=== PATIENT | female | born 1960 | race Hispanic/Latino ===

== ENCOUNTER 2019-10-31 16:27 | Outpatient (CLI) | payer OTHER ==
--- NOTE | 2019-10-31 17:30 | XRay Report ---
CERVICAL SPINE 4 VIEWS INDICATION / CLINICAL INFORMATION: DISABILITY; PRIMARY OSTEOARTHRITIS INVOLVING MULTIPLE JOINTS. COMPARISON: None available. FINDINGS: Moderate spondylosis, primarily involving the facet joints, from C4 to C7. No fracture, subluxation o r other acute abnormality. Signer Name: Vasu Trivedi MD Signed: 10/31/2019 5:26 PM Workstation Name: [id number]
--- NOTE | 2019-10-31 17:33 | XRay Report ---
RIGHT KNEE 2 VIEWS INDICATION / CLINICAL INFORMATION: DISABILITY; PRIMARY OSTEOARTHRITIS INVOLVING MULTIPLE JOINTS. COMPARISON: None available. FINDINGS: Minimal degenerative change. No significant joint effusion. No fracture or other acute abnormality. Signer Name: Vasu Trivedi MD Signed: 10/31/2019 5:29 PM Workstation Name: [id number]
--- NOTE | 2019-10-31 17:34 | XRay Report ---
RIGHT HAND 2 VIEWS INDICATION: DISABILITY; PRIMARY OSTEOARTHRITIS INVOLVING MULTIPLE JOINTS. COMPARISON: No relevant prior imaging study available. FINDINGS: There is mild diffuse IP joint space narrowing, greatest at the DIP joints and greatest involving the long and ring fingers. There is also mild joint space narrowing at the thumb carpometacarpal and tri scaphe articulations. No erosions, periarticular osteopenia, or soft tissue calcifications. No acute fracture. IMPRESSION: 1. Osteoarthrosis changes, as above. Signer Name: Isra Ordonez MD Signed: 10/31/2019 5:29 PM Workstation Name: [id number]
== END 2019-10-31 16:28 | disposition home or self-care (01) ==
LOC: XRAY 16:27
PROVIDERS: ATTEND Internal Medicine
DX: Z02.71 Encounter for disability determination (principal); M17.11 Unilateral primary osteoarthritis, right knee
CPT/HCPCS: 72040